=== PATIENT | female | born 1955 | race Asian ===

== ENCOUNTER 2020-10-19 10:44 | Emergency (ER) | payer OTHER ==
[~2020-10-19] VITALS: Ht 149.9 cm; Wt 97.7 kg
[2020-10-19] MEDS ORDERED: METF-960 PO (10:58)
[2020-10-19] MEDS ORDERED: MONT-35 PO (10:58)
[2020-10-19] MEDS ORDERED: SIMV-259 PO (10:59)
[2020-10-19 11:08] LABS: GLUCOSE,POINT OF CARE 187 MG/DL (70-110)
[2020-10-19 14:31] VITALS: BP 121/69
[2020-10-19] MEDS ORDERED: ACETAMINOPHEN/CODEINE 300-30 MG TABLET PO ONE (14:45)
== END 2020-10-19 15:33 | disposition home or self-care (01) ==
LOC: EMS 10:44
DX: S42.452A Displaced fracture of lateral condyle of left humerus, initial encounter for closed fracture (principal); S83.91XA Sprain of unspecified site of right knee, initial encounter; S83.92XA Sprain of unspecified site of left knee, initial encounter; S00.83XA Contusion of other part of head, initial encounter; M17.0 Bilateral primary osteoarthritis of knee; E11.9 Type 2 diabetes mellitus without complications; E78.00 Pure hypercholesterolemia, unspecified; I10 Essential (primary) hypertension; Z79.84 Long term (current) use of oral hypoglycemic drugs; W01.0XXA Fall on same level from slipping, tripping and stumbling without subsequent striking against object, initial encounter; Y93.01 Activity, walking, marching and hiking; Y92.512 Supermarket, store or market as the place of occurrence of the external cause; Y99.8 Other external cause status
CPT/HCPCS: 29105; 29240; 70450; 70486; 71045; 82962; 99285